=== PATIENT | female | born 1965 | race African-American/Black ===

== ENCOUNTER 2016-12-13 10:27 | Emergency (ER) | payer SELFPAY ==
[2016-12-13] MEDS ORDERED: Acetaminophen/Codeine 30-300mg Tablet ONE (10:55)
--- NOTE | 2016-12-13 11:44 | RAD ---
PA AND LATERAL VIEWS CHEST: HISTORY: Slipped on wet floor, chest pain. FINDINGS: The heart size is normal. The lungs are expanded without focal areas of consolidation, pneumothorax , or pleural effusions. No definite osseous abnormalities are seen. IMPRESSION: No radiographic evidence of acute cardiopulmonary process. POS: [facility]
--- NOTE | 2016-12-13 11:48 | RAD ---
LEFT SHOULDER 3 VIEWS: HISTORY: Fall, left shoulder pain. FINDINGS: No fracture or dislocation is seen. POS: [facility]
--- NOTE | 2016-12-13 11:49 | RAD ---
LEFT HIP 2 VIEWS: HISTORY: Fall, left hip pain. FINDINGS/IMPRESSION: No acute fracture or dislocation is seen. If there is high clinical suspicion for a fracture, further evaluation with CT scan should be perfor med. POS: [facility]
--- NOTE | 2016-12-13 11:50 | RAD ---
AP PELVIS: HISTORY: Fall, hip pain. FINDINGS/IMPRESSION: No fracture or dislocation is seen. POS: [facility]
== END 2016-12-13 11:25 | disposition home or self-care (01) ==
LOC: MADERS 10:27
DX: S20.222A Contusion of left back wall of thorax, initial encounter (principal); S20.212A Contusion of left front wall of thorax, initial encounter; S40.012A Contusion of left shoulder, initial encounter; S70.02XA Contusion of left hip, initial encounter; I10 Essential (primary) hypertension; M32.9 Systemic lupus erythematosus, unspecified; F20.9 Schizophrenia, unspecified; Z79.899 Other long term (current) drug therapy; W18.30XA Fall on same level, unspecified, initial encounter
CPT/HCPCS: 71020; 72170

== ENCOUNTER 2017-12-30 13:06 | Outpatient (CLI) | payer MEDICARE, MEDICAID ==
--- NOTE | 2017-12-30 14:46 | RAD ---
LEFT FOOT RADIOGRAPHS 3 VIEWS: DATE: 12/30/17. PROVIDED CLINICAL HISTORY: Left foot pain. FINDINGS: Plantar and posterior calcaneal enthesophyte formation are noted. No evidence for fracture or other acute osseous abnormality. If there is persistent clinical concern, conservative management and foll owup imaging are advised. IMPRESSION: As above. POS: [facility]
== END 2017-12-30 13:07 | disposition home or self-care (01) ==
LOC: MADRAD 13:06
PROVIDERS: ATTEND Family Medicine
DX: M79.672 Pain in left foot (principal)

== ENCOUNTER → 2018-01-03 | Emergency (ER) | payer MEDICARE, MEDICAID | LOC: MADERS 07:30 | DX: B88.9 Infestation, unspecified (principal); I10 Essential (primary) hypertension; M32.9 Systemic lupus erythematosus, unspecified; F20.9 Schizophrenia, unspecified; Z79.899 Other long term (current) drug therapy | CPT/HCPCS: 99283 ==

== ENCOUNTER 2018-01-30 10:20 | Emergency (ER) | payer MEDICARE, MEDICAID ==
[2018-01-30] MEDS ORDERED: Acetaminophen/Codeine 30-300mg Tablet ONE (10:40)
[2018-01-30] MEDS ORDERED: Dexamethasone 4 MG TAB ONE (10:41)
[2018-01-30] MEDS ORDERED: Benzonatate 100 MG CAP ONE (10:41)
== END 2018-01-30 11:00 | disposition home or self-care (01) ==
LOC: MADERS 10:20
DX: J18.9 Pneumonia, unspecified organism (principal); I10 Essential (primary) hypertension; F20.9 Schizophrenia, unspecified; Z79.899 Other long term (current) drug therapy
CPT/HCPCS: 99283; J8540

== ENCOUNTER 2019-06-23 22:02 | Emergency (ER) | payer MEDICARE | END 2019-06-23 22:28 | disposition home or self-care (01) | LOC: MADERS 22:02 | DX: S63.602A Unspecified sprain of left thumb, initial encounter (principal); M19.90 Unspecified osteoarthritis, unspecified site; I10 Essential (primary) hypertension; Z85.42 Personal history of malignant neoplasm of other parts of uterus; F20.9 Schizophrenia, unspecified; Z79.899 Other long term (current) drug therapy; Z79.52 Long term (current) use of systemic steroids; Z79.891 Long term (current) use of opiate analgesic; X50.9XXA Other and unspecified overexertion or strenuous movements or postures, initial encounter | CPT/HCPCS: 99283 ==

== ENCOUNTER 2020-03-12 10:11 | Emergency (ER) | payer MEDICAID, MEDICARE ==
[2020-03-12] MEDS ORDERED: HYDROcodone/Acetaminophen 5/325 mg Tablet ONE (11:46)
[2020-03-12] MEDS ORDERED: Dexamethasone 4 mg/ml Vial ONE (11:47)
[2020-03-12] MEDS ORDERED: Ibuprofen 800 MG TAB ONE (11:47)
[2020-03-12] MEDS ORDERED: Dexamethasone 4 MG TAB ONE (11:47)
== END 2020-03-12 12:10 | disposition home or self-care (01) ==
LOC: MADERS 10:11
DX: M32.9 Systemic lupus erythematosus, unspecified (principal); I10 Essential (primary) hypertension; F20.9 Schizophrenia, unspecified
CPT/HCPCS: 99283; J1100; J8540

== ENCOUNTER 2020-09-14 10:50 | Emergency (ER) | payer MEDICARE ==
[2020-09-14] MEDS ORDERED: Acetaminophen 500 MG TAB ONE (11:38)
[2020-09-14] MEDS ORDERED: predniSONE 20 MG TAB ONE (11:38)
== END 2020-09-14 11:44 | disposition home or self-care (01) ==
LOC: MADERS 10:50
DX: M77.51 Other enthesopathy of right foot and ankle (principal); M77.8 Other enthesopathies, not elsewhere classified; I10 Essential (primary) hypertension; M19.90 Unspecified osteoarthritis, unspecified site; Z85.42 Personal history of malignant neoplasm of other parts of uterus
CPT/HCPCS: 99282; J7512

== ENCOUNTER 2020-12-09 12:42 | Emergency (ER) | payer MEDICARE ==
[2020-12-09] MEDS ORDERED: predniSONE 20 MG TAB ONE (13:19)
[2020-12-09] MEDS ORDERED: Ketorolac Tromethamine 30 MG/ML VIAL ONE (13:19)
== END 2020-12-09 14:03 | disposition home or self-care (01) ==
LOC: MADERS 12:42
DX: M79.672 Pain in left foot (principal); M32.9 Systemic lupus erythematosus, unspecified; M19.90 Unspecified osteoarthritis, unspecified site; I10 Essential (primary) hypertension; Z85.42 Personal history of malignant neoplasm of other parts of uterus; Z79.899 Other long term (current) drug therapy
CPT/HCPCS: J1885; J7512